=== PATIENT | male | born 1945 | race Caucasian/White ===

== ENCOUNTER 2017-07-05 14:30 | Inpatient (IN) | payer MEDICARE, MEDICAID ==
[~2017-07-05] VITALS: Ht 172.7 cm; Wt 83.0 kg
[~2017-07-05 14:30] MED LIST: ATOR10TA84 PO; CARV6 PO; FAMO20 PO; FURO20 PO; KDUR10 PO; SPIR25 PO
[2017-07-05 15:33] LABS: BASOPHILS % (AUTO) 0.5 % (0.0-2.0); EOSINOPHILS % (AUTO) 5.3 % (1.0-6.0); HEMOGLOBIN 12.7 g/dL (13.5-17.5); LYMPHOCYTES # (AUTO) 1.5 K/uL (1.0-4.8); MEAN CORPUSCULAR HGB CONC 33.4 G/dL (31.0-37.0); MEAN CORPUSCULAR VOLUME 90 fL (80-100); MONOCYTES # (AUTO) 0.7 K/uL (0.1-1.0); MONOCYTES % (AUTO) 8.9 % (2.0-9.0); NEUTROPHILS # (AUTO) 5.1 K/uL (1.8-7.7); NEUTROPHILS % (AUTO) 66.3 % (40.0-70.0); PLATELET COUNT (AUTO) 212 K/uL (150-450); RED BLOOD CELL COUNT(AUTO) 4.22 MIL/uL (4.50-5.90); RED CELL DISTRIBUTION WIDTH 15.8 % (11.5-14.5); WHITE BLOOD COUNT (AUTO) 7.7 K/uL (4.5-11.0)
[2017-07-05 15:47] LABS: ANION GAP 12 mmol/L (8-16); CALCIUM, TOTAL 8.9 mg/dL (8.8-10.5); CARBON DIOXIDE 23 mmol/L (22-29); CHLORIDE 109 mmol/L (98-107); CREATININE 1.02 mg/dL (0.60-1.30); GLOMERULAR FILTR. RATE CALC > 60 mL/min (>60); POTASSIUM 4.6 mmol/L (3.5-5.1); SODIUM SERUM 144 mmol/L (136-145); UREA NITROGEN, BLOOD 21 mg/dL (7-18)
[2017-07-05 15:53] LABS: ALANINE AMINOTRANSFERASE 17 U/L (12-78); ALBUMIN 3.6 g/dL (3.4-5.0); ASPARTATE AMINOTRANSFERASE 15 U/L (15-37); BILIRUBIN,TOTAL 0.6 mg/dL (0.1-1.0); CREATINE KINASE, TOTAL 70 U/L (39-308); TOTAL PROTEIN, SERUM 6.9 g/dL (6.4-8.2)
[2017-07-05 15:59] LABS: B-TYPE NATRIURETIC PEPTIDE 398 pg/mL (0-100)
[2017-07-05 16:21] LABS: APPEARANCE,URINE CLEAR (CLEAR); GLUCOSE, URINE (UA) NEGATIVE (NEGATIVE); KETONES,URINE NEGATIVE (NEGATIVE); LEUKOCYTE ESTERASE ,URINE NEGATIVE (NEGATIVE); OCCULT BLOOD,URINE NEGATIVE (NEGATIVE); PROTEIN,URINE NEGATIVE (NEGATIVE)
[2017-07-05 16:51] LABS: ADD UA MICROSCOPIC NO
[2017-07-05] MEDS ORDERED: ACETAMINOPHEN 325 MG TABLET PO PRN ×2 (17:15→21:00)
[2017-07-05] MEDS ORDERED: ONDANSETRON HCL 4 MG/2 ML VIAL IVP PRN ×2 (17:15→21:00)
[2017-07-05] MEDS ORDERED: 0.9% SODIUM CHLORIDE 10 ML SYRINGE IVP PRN ×2 (17:15→21:00)
[2017-07-05] MEDS ORDERED: ALBUTEROL SULFATE 2.5 MG/0.5 ML NEB SOLUTION NEB PRN (21:00)
[2017-07-05] MEDS ORDERED: IPRATROPIUM BROMIDE 0.5 MG/2.5 ML NEB SOLUTION NEB PRN (21:00)
[2017-07-05] MEDS: CARVEDILOL 6.25 MG TABLET PO SCH (21:18)
[2017-07-05] MEDS: SPIRONOLACTONE 25 MG TABLET PO SCH (21:18)
[2017-07-05 21:41] VITALS: BP 141/90
[2017-07-05 23:59] VITALS: BP 138/85
[2017-07-06 04:30] VITALS: BP 117/63
[2017-07-06 07:00] LABS: BASOPHILS # (AUTO) 0.08 K/uL (0.00-0.20); EOSINOPHILS # (AUTO) 0.51 K/uL (0.00-0.70); EOSINOPHILS % (AUTO) 6.25 % (1.0-6.0); HEMATOCRIT 35.3 % (41-53); HEMOGLOBIN 11.8 g/dL (13.5-17.5); LYMPHOCYTES % (AUTO) 24.3 % (22.0-44.0); MEAN CORPUSCULAR HGB CONC 33.4 G/dL (31.0-37.0); MEAN CORPUSCULAR VOLUME 90 fL (80-100); MONOCYTES # (AUTO) 0.7 K/uL (0.1-1.0); MONOCYTES % (AUTO) 8.3 % (2.0-9.0); NEUTROPHILS # (AUTO) 4.9 K/uL (1.8-7.7); NEUTROPHILS % (AUTO) 60.2 % (40.0-70.0); PLATELET COUNT (AUTO) 161 K/uL (150-450); RED BLOOD CELL COUNT(AUTO) 3.94 MIL/uL (4.50-5.90); RED CELL DISTRIBUTION WIDTH 15.5 % (11.5-14.5); WHITE BLOOD COUNT (AUTO) 8.1 K/uL (4.5-11.0)
[2017-07-06 07:30] VITALS: BP 121/70
[2017-07-06 07:33] LABS: ALANINE AMINOTRANSFERASE 15 U/L (12-78); ALBUMIN 3.3 g/dL (3.4-5.0); ANION GAP 7 mmol/L (8-16); ASPARTATE AMINOTRANSFERASE 15 U/L (15-37); BILIRUBIN,TOTAL 0.7 mg/dL (0.1-1.0); CALCIUM, TOTAL 8.4 mg/dL (8.8-10.5); CARBON DIOXIDE 27 mmol/L (22-29); CHLORIDE 107 mmol/L (98-107); CREATININE 0.94 mg/dL (0.60-1.30); GLOMERULAR FILTR. RATE CALC > 60 mL/min (>60); POTASSIUM 4.3 mmol/L (3.5-5.1); SODIUM SERUM 141 mmol/L (136-145); THYROID STIMULATING HORMONE 3.38 uIU/mL (0.36-3.74); TOTAL PROTEIN, SERUM 6.6 g/dL (6.4-8.2); UREA NITROGEN, BLOOD 18 mg/dL (7-18)
[2017-07-06] MEDS: FAMOTIDINE 20 MG TABLET PO SCH (08:06)
[2017-07-06] MEDS: CARVEDILOL 6.25 MG TABLET PO SCH ×2 (08:06→20:25)
[2017-07-06] MEDS: SPIRONOLACTONE 25 MG TABLET PO SCH ×2 (08:06→20:25)
[2017-07-06] MEDS: ATORVASTATIN CALCIUM 10 MG TABLET PO SCH (08:06)
[2017-07-06] MEDS: ASPIRIN 81 MG CHEWABLE TABLET PO SCH (08:07)
[2017-07-06] MEDS: FUROSEMIDE 20 MG TABLET PO SCH (08:07)
[2017-07-06 12:06] VITALS: BP 105/63
[2017-07-06 15:29] VITALS: BP 100/63
[2017-07-06 19:34] VITALS: BP 126/68
[2017-07-06 20:02] LABS: GLUCOSE,POINT OF CARE 123 MG/DL (70-110)
[2017-07-06 23:18] VITALS: BP 130/83
[2017-07-07 04:35] VITALS: BP 143/75
[2017-07-07 07:09] VITALS: BP 128/84
[2017-07-07] MEDS: FUROSEMIDE 20 MG TABLET PO SCH (08:11)
[2017-07-07] MEDS: ASPIRIN 81 MG CHEWABLE TABLET PO SCH (08:11)
[2017-07-07] MEDS: FAMOTIDINE 20 MG TABLET PO SCH (08:11)
[2017-07-07] MEDS: CARVEDILOL 6.25 MG TABLET PO SCH ×2 (08:11→20:29)
[2017-07-07] MEDS: ATORVASTATIN CALCIUM 10 MG TABLET PO SCH (08:11)
[2017-07-07] MEDS: SPIRONOLACTONE 25 MG TABLET PO SCH ×2 (08:11→20:29)
[2017-07-07 11:12] VITALS: BP 99/63
[2017-07-07 15:56] VITALS: BP 109/62
[2017-07-07 19:37] VITALS: BP 121/75
[2017-07-08 00:16] VITALS: BP 120/68
[2017-07-08 04:41] VITALS: BP 124/71
[2017-07-08 07:44] VITALS: BP 131/71
[2017-07-08] MEDS: FUROSEMIDE 20 MG TABLET PO SCH (08:13)
[2017-07-08] MEDS: SPIRONOLACTONE 25 MG TABLET PO SCH (08:13)
[2017-07-08] MEDS: FAMOTIDINE 20 MG TABLET PO SCH (08:13)
[2017-07-08] MEDS: ASPIRIN 81 MG CHEWABLE TABLET PO SCH (08:13)
[2017-07-08] MEDS: CARVEDILOL 6.25 MG TABLET PO SCH (08:14)
[2017-07-08] MEDS: ATORVASTATIN CALCIUM 10 MG TABLET PO SCH (08:14)
[2017-07-08 11:10] VITALS: BP 108/79
== END 2017-07-08 14:35 | DRG 93 ==
LOC: EMS 14:30 → 5S 20:30 → 6N 07-06 19:08
PROVIDERS: ADMIT Internal Medicine; ATTEND Internal Medicine
DX: G92 Toxic encephalopathy (principal); F03.90 Unspecified dementia, unspecified severity, without behavioral disturbance, psychotic disturbance, mood disturbance, and anxiety; Z86.73 Personal history of transient ischemic attack (TIA), and cerebral infarction without residual deficits; I10 Essential (primary) hypertension; K21.9 Gastro-esophageal reflux disease without esophagitis; E78.5 Hyperlipidemia, unspecified; Z96.649 Presence of unspecified artificial hip joint
CPT/HCPCS: 70450; 82607; 82746; 82962; 84145; 84439; 84443; 92523; 92526; 93005; 93306; 97110; 97116; 97162; 97530; 99285